=== PATIENT | female | born 1980 | race Caucasian/White ===

== ENCOUNTER 2021-11-04 13:52 | Outpatient (CLI) | payer OTHER ==
[~2021-11-04 13:52] MED LIST: Magnevist 469MG/ML 20 ML VIAL ONE
== END 2021-11-04 13:53 | disposition home or self-care (01) ==
LOC: TBSIIMAG 13:52
PROVIDERS: ATTEND Physician Assistant
DX: R56.9 Unspecified convulsions (principal)
CPT/HCPCS: 70553

== ENCOUNTER 2021-11-15 19:30 | Outpatient (CLI) | payer OTHER | END 2021-11-15 19:31 | disposition home or self-care (01) | LOC: SLEEPLAB 19:30 | PROVIDERS: ATTEND Physician Assistant | DX: G47.33 Obstructive sleep apnea (adult) (pediatric) (principal); R53.83 Other fatigue; R06.83 Snoring; F41.9 Anxiety disorder, unspecified; I10 Essential (primary) hypertension; E11.9 Type 2 diabetes mellitus without complications; E66.9 Obesity, unspecified; F32.9 Major depressive disorder, single episode, unspecified; R56.9 Unspecified convulsions; D64.9 Anemia, unspecified; R51.9 Headache, unspecified | CPT/HCPCS: 95810 ==

== ENCOUNTER 2022-04-19 13:54 | Outpatient (CLI) | payer OTHER | END 2022-04-19 13:55 | disposition home or self-care (01) | LOC: EEG 13:54 | PROVIDERS: ATTEND Psychiatry & Neurology Neurology | DX: R56.9 Unspecified convulsions (principal); G93.40 Encephalopathy, unspecified | CPT/HCPCS: 95816; 95957 ==